=== PATIENT | female | born 1985 | race Two or more races ===

== ENCOUNTER 2018-12-27 16:25 | Emergency (ER) | payer BC ==
[~2018-12-27] VITALS: Ht 160 cm; Wt 69.4 kg
[2018-12-27 16:31] VITALS: BP 108/62
[2018-12-27] MEDS ORDERED: ACETAMINOPHEN ES 500 MG TABLET ONE (16:49)
[2018-12-27] MEDS ORDERED: ONDANSETRON 4 MG TAB.RAPDIS ONE (16:50)
[2018-12-27] MEDS ORDERED: IBUPROFEN 600 MG TABLET PO ONE ×2 (16:50→17:00)
[2018-12-27] MEDS ORDERED: ONDANSETRON 4 MG TAB.RAPDIS PO ONE (17:00)
[2018-12-27] MEDS ORDERED: ACETAMINOPHEN ES 500 MG TABLET PO ONE (17:00)
== END 2018-12-27 18:03 | disposition home or self-care (01) ==
LOC: ER 16:27
DX: S13.4XXA Sprain of ligaments of cervical spine, initial encounter (principal); S46.812A Strain of other muscles, fascia and tendons at shoulder and upper arm level, left arm, initial encounter; S09.8XXA Other specified injuries of head, initial encounter; E11.9 Type 2 diabetes mellitus without complications; Z88.6 Allergy status to analgesic agent; V49.49XA Driver injured in collision with other motor vehicles in traffic accident, initial encounter; Y93.89 Activity, other specified; Y92.413 State road as the place of occurrence of the external cause; Y99.8 Other external cause status
CPT/HCPCS: 73030; 99283; Q0162